=== PATIENT | male | born 1960 | race African-American/Black ===

== ENCOUNTER 2019-02-15 07:27 | Inpatient (IN) | payer OTHER ==
[~2019-02-15] VITALS: Ht 175.3 cm; Wt 88.5 kg
[2019-02-15] MEDS ORDERED: GELATIN SPONGE,ABSORBABLE 1 EA SPONGE TP ONE (10:02)
[2019-02-15] MEDS ORDERED: HEMOSTATIC MATRIX 10 ML 1 EACH PAD MC ONE (10:02)
[2019-02-15] MEDS ORDERED: ANESTHESIA TRAY IN PYXIS 1 EA TRAY MC ONE (10:02)
[2019-02-15] MEDS ORDERED: BACITRACIN 50000 UNITS/VIAL ONE (10:03)
[2019-02-15] MEDS ORDERED: HEPARIN SODIUM, PORCINE 5000 UNITS/1 ML VIAL ONE ×2 (10:12)
[2019-02-15] MEDS ORDERED: MIDAZOLAM HCL 2 MG/2ML VIAL ONE (10:19)
[2019-02-15] MEDS ORDERED: SCOPOLAMINE HBR 1 EA PATCH.TD72 TD ONE (10:19)
[2019-02-15] MEDS ORDERED: PROPOFOL 100 ML ONE (11:05)
[2019-02-15] MEDS ORDERED: THROMBIN (BOVINE) 5,000 UNITS VIAL TP ONE (11:42)
[2019-02-15] MEDS ORDERED: THROMBIN (BOVINE) 20,000 UNITS SPRAY KIT TP ONE (12:00)
[2019-02-15] MEDS ORDERED: DOCUSATE SODIUM 250 MG CAPSULE PO PRN (14:00)
[2019-02-15] MEDS ORDERED: ZOLPIDEM TARTRATE 5 MG TABLET PO PRN (14:00)
[2019-02-15] MEDS ORDERED: ACETAMINOPHEN 325 MG TABLET PO PRN (14:00)
[2019-02-15] MEDS ORDERED: ONDANSETRON HCL/PF 4 MG/2 ML VIAL IVP PRN (14:00)
[2019-02-15] MEDS ORDERED: diphenhydrAMINE HCL 25 MG CAPSULE PO PRN (14:00)
[2019-02-15 14:45] VITALS: BP 130/73
--- NOTE | 2019-02-15 15:00 | NUR ---
received patient from cinthia muir, s/p cervical disectomy. patient alert and orientedx4, able to make needs known. sedated but able to answer some questions, at bedside. vital signs stable. not in any form of distress. no sob. pain at surgical site, will administer pain medications as ordered. oriented patient in the room, taught how to use the call light when assistance is needed. iv access on left forearm intact and patent. dressing on neck,surgical site, c/d/i, noted with hemovac drain with <5cc sanguineous drainage. scd pumps in place. kept patient hob elevated 45 degrees. kept patient safe and comfortable. bed in low/locked psition, siderails upx2, call light in reach. will continue to moniotr accordingly.
[2019-02-15] MEDS: HYDROMORPHONE 1 MG/1 ML DISP.SYRIN IV PRN ×3 (15:08→21:28)
--- NOTE | 2019-02-15 15:30 | NUR ---
placed ice pack on patient shoulder and neck for pain relief.
[2019-02-15] MEDS ORDERED: LATA2.5D7 OP (15:55)
[2019-02-15] MEDS ORDERED: ATEN25TA PO (15:57)
[2019-02-15] MEDS ORDERED: EZET10TA15 PO (15:57)
[2019-02-15] MEDS ORDERED: CETI-102 PO (15:57)
[2019-02-15 16:00] VITALS: BP 130/73
--- NOTE | 2019-02-15 16:00 | NUR ---
rn notes Kevin Oliva DNP at bedside talking to patient. Unable to do skin/body check due to pain on surgical site when moving.per patient, no open wounds. Belongings checked by Nicolasa Lopes CNA and noted in belongings form.
[2019-02-15 16:02] VITALS: BP 131/76
[2019-02-15] MEDS ORDERED: HYDROMORPHONE MDV 30 MG in IV NS 0.9% 15 ML, PCA TOTAL VOLUME 1 BAG IV PRN ×3 (16:30)
[2019-02-15] MEDS ORDERED: NALOXONE HCL 0.4 MG/ML AMPUL IV PRN (16:30)
[2019-02-15] MEDS ORDERED: HYDROCODONE/APAP 10/325MG 1 EA TABLET PO PRN (16:30)
--- NOTE | 2019-02-15 16:30 | NUR ---
Dr Temple, pain management, ordered COOKY PACKER but only to give if patient really needs it and PO analgesic not effective. Dilaudid bag for COOKY PACKER placed in the Narcotic box in medication room.
[2019-02-15] MEDS ORDERED: KEY,NONCONTROL,TO KEEP IN PYXI 1 EA MC ONE (16:45)
[2019-02-15] MEDS ORDERED: CYCLOBENZAPRINE 10 MG TABLET PO PRN (17:00)
--- NOTE | 2019-02-15 17:00 | NUR ---
explained to patient that Dr Temple ordered SURGICAL AIDE only if really needed and PO pain meds are not effective. Patient verbalized PO analgesic is working pretty well, and verbalized taht he doesnt want to use the SURGICAL AIDE.
[2019-02-15] MEDS: METHOCARBAMOL (500MG) 500 MG TABLET PO SCH ×2 (17:05→23:09)
[2019-02-15] MEDS: HYDROCODONE/APAP 10/325MG 1 EA TABLET PO PRN (17:05)
[2019-02-15] MEDS: HYDROCODONE/APAP 5/325MG 1 EACH TABLET PO PRN (18:34)
[2019-02-15] MEDS: IV NS 0.9% 1,000 ML IV PRN (18:58)
--- NOTE | 2019-02-15 19:00 | NUR ---
MS RN NOTE RECEIVED PT INSTABLE CONDITION, A/O X4, CURRENTLY AWAKE WATCHING TV WITH AT BEDSIDE. NO SIGNS OF SOB OR DISTRESS, NO C/O PAIN OR N/V. SX SITE DRY AND INTACT, HEMOVAC IN PLACE WITH ADEQUATE DRAINAGE NOTED. NECK BRACE PLACED ON PT PER YARELY. ALL CURRENT NEEDS ATTENDED TO. BED LOW, LOCKED, UPPER RAILS UP, AND CALL LIGHT WITHIN REACH. WILL CONT. TO CLOSELY MONITOR.
[2019-02-15 19:07] LABS: BASOPHILS % (AUTO) 0.1 % (0.0-2.0); HEMATOCRIT 45 % (39-51); HEMOGLOBIN 15.1 g/dL (13.5-17.5); LYMPHOCYTES # (AUTO) 0.3 /CMM (0.8-4.8); MEAN CORPUSCULAR HGB CONC 34 g/dl (31.0-36.0); MEAN CORPUSCULAR VOLUME 95 fL (80-96); MONOCYTES # (AUTO) 0.2 /CMM (0.1-1.30); MONOCYTES % (AUTO) 1.2 % (2.0-12.0); NEUTROPHILS # (AUTO) 14.2 /CMM (1.8-8.9); NEUTROPHILS % (AUTO) 96.7 % (43.0-81.0); PLATELET COUNT (AUTO) 245 /CMM (150-450); RED BLOOD CELL COUNT(AUTO) 4.74 MIL/uL (4.5-6.0); WHITE BLOOD COUNT (AUTO) 14.7 K/uL (4.3-11.0)
--- NOTE | 2019-02-15 19:15 | NUR ---
rn notes just informed primary nurse that patient brought his neck collar and ask if he needs it tonight, they got the collar before the day of surgery and per patient it was adjusted on his size already. Patient didnt have the neck collar in place/on when transferred to the medsur unit from recovery room, nor was endorse to receiving nurse and there was no order. Verified with Kevin Oliva DNP if patient needs the collar on. Per Kevin, put the patient's collar on. Primary nurse and night nurse mike placed neck collar on patient. patient tolerated well.
--- NOTE | 2019-02-15 19:30 | NUR ---
rn closing notes patient in stable condition. all needs attended and provided. all due medications and pain management given. kept patient safe and comfortable. neck collar in place. incentive sp[facility]rometer at [facility]. kept patient hob elevated 45degrees. kept patient comfortable. bed in low/lockled position, siderails upx2,call light in reach. endorsed to leslee mckeon for camila.
[2019-02-15 20:00] VITALS: BP 112/69
[2019-02-15] MEDS: ANCEF 1 GM/50 ML D5W IV SCH ×2 (21:11)
[2019-02-15] MEDS: FAMOTIDINE (20 MG) 20 MG TABLET PO SCH (21:12)
[2019-02-15] MEDS ORDERED: SENNOSIDES 8.6 MG TABLET PO SCH (22:00)
[2019-02-15] MEDS ORDERED: DEXAMETHASONE SOD PHOSPHATE 10 MG/ML VIAL IV ONE (22:00)
--- NOTE | 2019-02-15 22:00 | NUR ---
MS RN NOTE DECADRON 10 MG IV GIVEN, FORGOT TO SCAN MEDICATION.
[2019-02-16] MEDS: HYDROCODONE/APAP 10/325MG 1 EA TABLET PO PRN (02:06)
[2019-02-16] MEDS: METHOCARBAMOL (500MG) 500 MG TABLET PO SCH ×2 (05:04→12:08)
[2019-02-16] MEDS: ANCEF 1 GM/50 ML D5W IV SCH ×4 (05:04→12:09)
--- NOTE | 2019-02-16 05:40 | NUR ---
MS RN NOTE PT SEEN AND EXAMINED BY DR. RICHEY (SPINAL SURGEON) WITH VERBALIZATION OF TAKING OUT HEMOVAC LATER TODAY AND POSSIBLE DISCHARGE. WILL ENDORSE TO NEXT SHIFT, AND CONTINUE TO MONITOR.
--- NOTE | 2019-02-16 05:54 | NUR ---
MS RN NOTE PT DECLINED LINEN CHANGE AND BED BATH, STATING THAT HE WILL BE GOING HOME TODAY.
[2019-02-16 06:10] LABS: HEMATOCRIT 42 % (39-51); LYMPHOCYTES # (AUTO) 0.5 /CMM (0.8-4.8); LYMPHOCYTES % (AUTO) 3.2 % (20.0-44.0); MEAN CORPUSCULAR HGB CONC 33 g/dl (31.0-36.0); MEAN CORPUSCULAR VOLUME 94 fL (80-96); MONOCYTES # (AUTO) 0.4 /CMM (0.1-1.30); MONOCYTES % (AUTO) 2.6 % (2.0-12.0); NEUTROPHILS # (AUTO) 15.7 /CMM (1.8-8.9); NEUTROPHILS % (AUTO) 94.2 % (43.0-81.0); PLATELET COUNT (AUTO) 230 /CMM (150-450); RED BLOOD CELL COUNT(AUTO) 4.44 MIL/uL (4.5-6.0); WHITE BLOOD COUNT (AUTO) 16.7 K/uL (4.3-11.0)
--- NOTE | 2019-02-16 06:21 | NUR ---
MS RN NOTE PT INSTABLE CONDITION, A/O X4, CURRENTLY AWAKE WATCHING TV. NO SIGNS OF SOB OR DISTRESS, NO C/O PAIN OR N/V. SX SITE DRY AND INTACT, HEMOVAC IN PLACE WITH 50 ML NOTED. NECK BRACE CURRENTLY BEING WORN. ALL CURRENT NEEDS ATTENDED TO. BED LOW, LOCKED, UPPER RAILS UP, AND CALL LIGHT WITHIN REACH. WILL CONT. TO CLOSELY MONITOR AND ENDORSE TO NEXT SHIFT FOR CHARLIE.
[2019-02-16] MEDS: HYDROCODONE/APAP 5/325MG 1 EACH TABLET PO PRN (06:41)
[2019-02-16] MEDS: IV NS 0.9% 1,000 ML IV PRN (06:49)
--- NOTE | 2019-02-16 07:16 | NUR ---
MS RN NOTES PATIENT IN BED ALERT ORIENTED X 4. NO ACUTE DISTRESS NOTED. BREATHING UNLABORED. IV ACCESS PATENT AND INTACT. SURGERY SITE WITH DRESSING CLEAN DRY AND INTACT WITH HEMOVAC. SAFETY MEASURES IN PLACE. CALL LIGHT WITHIN REACH. WILL CONTINUE TO MONITOR ACCORDINGLY.
[2019-02-16 08:00] VITALS: BP 104/55
--- NOTE | 2019-02-16 08:39 | NUR ---
MS RN NOTES PATIENT SEEN AND EVALUATED BY DR YARELY MELLO WITH NEW ORDERS MADE, NOTED AND CARRIED OUT.
[2019-02-16] MEDS ORDERED: DEXAMETHASONE SOD PHOSPHATE 4 MG/ML VIAL IV SCH (09:00)
[2019-02-16] MEDS: FAMOTIDINE (20 MG) 20 MG TABLET PO SCH (09:20)
--- NOTE | 2019-02-16 15:50 | NUR ---
MS GERMAINVISITOR SERVICES REPRESENTATIVE NOTES PATIENT DISCHARGE HOME WITH STABLE VITAL SIGNS, ALERT ORIENTED X 4. NO ACUTE DISTRESS NOTED. BREATHING UNLABORED. IV ACCESS REMOVED, NO BLEEDING, NO REDNESS OR SWELLING NOTED. DRAIN REMOVED ON SURGERY SITE WITH DRESSING CLEAN DRY AND INTACT, NO BLEEDING, NO REDNESS, NO SWELLING NOTED. CERVICAL COLLAR IN PLACE. DISCHARGE INSTRUCTIONS GIVEN TO THE PATIENT INCLUDING FOLLOW UP WITH DOCTOR AND NEW PRESCRIPTION. ALL BELONGINGS ACCOUNTED FOR. ASSISTED TO THE LOBBY, PICKED UP VIA PRIVATE CAR IN STABLE CONDITION. Addendum: 02/16/19 at 1644 by JACQUIE MARRUFO RN ADDENDUM TIP OF DRAIN CATHETER INTACT.
[2019-02-17] MEDS ORDERED: DEXAMETHASONE SOD PHOSPHATE 4 MG/ML VIAL IV SCH (09:00)
== END 2019-02-16 15:52 | disposition home or self-care (01) | DRG 473 ==
LOC: DS 07:27 → MED 14:04
PROVIDERS: ADMIT Orthopaedic Surgery; ATTEND Orthopaedic Surgery
PROC: 00NW0ZZ Release Cervical Spinal Cord, Open Approach (ICD-10-PCS; principal; 2019-02-15)
PROC: 0RG40A0 Fusion of Cervicothoracic Vertebral Joint with Interbody Fusion Device, Anterior Approach, Anterior Column, Open Approach (ICD-10-PCS; principal; 2019-02-15)
PROC: 07DR3ZX Extraction of Iliac Bone Marrow, Percutaneous Approach, Diagnostic (ICD-10-PCS; principal; 2019-02-15)
PROC: 01N10ZZ Release Cervical Nerve, Open Approach (ICD-10-PCS; principal; 2019-02-15)
DX: M47.812 Spondylosis without myelopathy or radiculopathy, cervical region (principal); E78.5 Hyperlipidemia, unspecified; I10 Essential (primary) hypertension; Z80.42 Family history of malignant neoplasm of prostate; Z90.79 Acquired absence of other genital organ(s); M89.9 Disorder of bone, unspecified
CPT/HCPCS: 36415; 72040-TC; 85025-TC; 86850-TC; 86921-TC; 87081-TC; 88304-TC; 88311-TC; 97116-TC; 97530-TC; A4216; A4217; A6209; G0378; J0690; J1100; J1170; J1644; J2250; J2704; J3490; J7030; J7060